=== PATIENT | female | born 1935 | race Caucasian/White ===

== ENCOUNTER 2021-01-30 13:49 | Inpatient (IN) | payer MEDICARE ==
[~2021-01-30] VITALS: Ht 160 cm; Wt 78.5 kg
--- NOTE | ~2021-01-30 | EMS ---
[address] [address] EMS Patient Care Report Name: ALYSHA BHAKTA Room: [place] [address] ADM IN [facility]#: [id number] Admission: 01/30/21 Attend Phys: Pat Kelley MD Discharge: Date of : 34 Report #: [id number] THIS REPORT FOR: //name// Report Transmitted: 01/30/2021 15:18 EMS Care Summary HANNAH CHAN Incident [id number] @ 01/30/2021 12:40 Incident Location [address] [place] [address] Patient Alysha A Sakina Female, 86 Years 1935 Patient Address [address] [place] [address] Patient Allergies No known allergies, Chief Complaint Cardiac related symptoms Disposition Transported No Lights/[place] Reason Unconscious/Fainting Transported To [facility] Narrative [facility] Laura responded without delay to a private residence for a female with decreased LOC. Arrived on scene without incident. Arrived to find the patient has a home health [employer] at her side. The [employer] reports that on her assessment she noted the patient to have a pulse rate in the 30's and a low blood pressure. [employer] reports that the patient has been having episodes of dizziness and fatigue. [employer] reports that the patient is normally healthy and denies the patient having any past medical history. [employer] denies the patient taking any medications. Arrived to find the patient is an 86 Y/O female sitting upright in a chair in her living room. The patient is alert and oriented, GCS is documented. The patient is [facility] [address] [place] [address] EMS Patient Care Report Name: ALYSHA BHAKTA Room: [place] [address] ADM IN [facility]#: [id number] Admission: 01/30/21 Attend Phys: Pat Kelley MD Discharge: Date of : 34 Report #: [id number] slightly anxious but cooperative with EMS staff. The patients airway is patent, breathing spontaneously with an adequate rate and depth. Circulation is present, skin condition is documented. The [employer] requested to see an EKG. EKG is obtained, the patient is noted to be in a junctional rhythm. The patient is bradycardic. The patient denies any dizziness at this time but reports that she has had some blurred vision. The patient denies any chest pain and denies shortness of breath but is noted to be hypotensive. The patient is assisted from her chair to stair chair without incident. The patient is then escorted to the EMS cot and secured to the cot with all safety restraints. The patient is then escorted to, lifted into and secured to the ambulance without incident. The patient remains on the full cardiac cath lab technologist. Vascular access is established, labs are collected and the patients blood glucose is obtained and documented without incident. IV fluids are administered and the patient is given .5mg of Atropine. The patient tolerated well and has noted improvement in her vital signs. The patients medical history is obtained and reviewed with the patient. The patient denies any past history, denies any allergies and denies taking any medications outside of OTC supplements at home. The patient denies any recent illness at home. The patient reports that her dizziness, blurred vision and general fatigue have been ongoing for about six months. The patient denies any other complaints at this time and continues to rest on the cot in no acute distress. Radio report called to [facility] without incident. arrived at the receiving facility without incident. The patient is removed from the ambulance and escorted inside without incident. The patient is transferred from EMS cot to ER cart without incident. RN at the bedside to obtain report and assume care of the patient. RN requested nothing further. The patient remains in stable condition. [facility] 310 cleared and returned to service. Initial Vitals @12:48Pain: 0/10, @13:19Pain: 0/10, @12:54SpO2: 96, @13:17SpO2: 97, @13:30SpO2: 98, @13:37SpO2: 98, @12:52 @13:21 @12:54P: 40,R: 17,BP: 81/62, @13:17P: 42,R: 17,BP: 132/75, @13:30P: 52,R: 17,BP: 171/87, @13:37P: 52,R: 19,BP: 178/96, @12:54GCS: 15, @13:17GCS: 15, @13:30GCS: 15, @13:37GCS: 15, @12:48 @13:28Glucose: 98, [place] [address] EMS Patient Care Report Name: ALYSHA BHAKTA Room: [address] IN [facility]#: [id number] Admission: 01/30/21 Attend Phys: Pat Kelley MD Discharge: Date of : 34 Report #: [id number] Assessments @12:48MENTAL:SKIN:HEENT:LUNG SOUNDS:ABDOMEN:PELVIS//GI:EXTREMITIES:PULSE:NEURO: Impression Cardiac arrhythmia/dysrhythmia Procedures @13:20Atropine - 0.500 Milligrams (mg) - Intravenous (IV)Response: Improved@13:18 cc () Site: Antecubital-LeftResponse: ImprovedSucceeded@12:5212-Lead ECGResponse: UnchangedSucceeded@13:2112-Lead ECGResponse: UnchangedSucceeded Timeline 12:38,Call Received 12:38,Dispatch Notified 12:38,Psap Call 12:40,Dispatched 12:41,En Route 12:47,On Scene 12:48,At Patient 12:48,BP: / M,PULSE: ,RR: R,SPO2: Ox,ETCO2: ,BG: ,PAIN: 0,GCS: , 12:48,BP: / M,PULSE: ,RR: R,SPO2: Ox,ETCO2: ,BG: ,PAIN: ,GCS: , 12:52,12-Lead ECG,Response: UnchangedSucceeded, 12:52,BP: / M,PULSE: ,RR: R,SPO2: Ox,ETCO2: ,BG: ,PAIN: ,GCS: , 12:54,BP: / M,PULSE: ,RR: R,SPO2: 96 Ox,ETCO2: ,BG: ,PAIN: ,GCS: , 12:54,BP: 81/62 M,PULSE: 40,RR: 17 R,SPO2: Ox,ETCO2: ,BG: ,PAIN: ,GCS: , 12:54,BP: / M,PULSE: ,RR: R,SPO2: Ox,ETCO2: ,BG: ,PAIN: ,GCS: 15, 13:17,BP: / M,PULSE: ,RR: R,SPO2: 97 Ox,ETCO2: ,BG: ,PAIN: ,GCS: , 13:17,BP: 132/75 M,PULSE: 42,RR: 17 R,SPO2: Ox,ETCO2: ,BG: ,PAIN: ,GCS: , 13:17,BP: / M,PULSE: ,RR: R,SPO2: Ox,ETCO2: ,BG: ,PAIN: ,GCS: 15, 13:18, cc Site: Antecubital-Left,Response: ImprovedSucceeded, 13:19,Depart Scene 13:19,BP: / M,PULSE: ,RR: R,SPO2: Ox,ETCO2: ,BG: ,PAIN: 0,GCS: , 13:20,Atropine - 0.500 Milligrams (mg) - Intravenous (IV),Response: Improved 13:21,12-Lead ECG,Response: UnchangedSucceeded, 13:21,BP: / M,PULSE: ,RR: R,SPO2: Ox,ETCO2: ,BG: ,PAIN: ,GCS: , 13:28,BP: / M,PULSE: ,RR: R,SPO2: Ox,ETCO2: ,B,PAIN: ,GCS: , 13:30,BP: / M,PULSE: ,RR: R,SPO2: 98 Ox,ETCO2: ,BG: ,PAIN: ,GCS: , 13:30,BP: 171/87 M,PULSE: 52,RR: 17 R,SPO2: Ox,ETCO2: ,BG: ,PAIN: ,GCS: , 13:30,BP: / M,PULSE: ,RR: R,SPO2: Ox,ETCO2: ,BG: ,PAIN: ,GCS: 15, 13:36,At Destination 13:37,BP: / M,PULSE: ,RR: R,SPO2: 98 Ox,ETCO2: ,BG: ,PAIN: ,GCS: , 13:37,BP: 178/96 M,PULSE: 52,RR: 19 R,SPO2: Ox,ETCO2: ,BG: ,PAIN: ,GCS: , 13:37,BP: / M,PULSE: ,RR: R,SPO2: Ox,ETCO2: ,BG: ,PAIN: ,GCS: 15, [facility] [address] [place] [address] EMS Patient Care Report Name: ALYSHA BHAKTA Room: [place] [address] ADM IN [facility]#: [id number] Admission: 01/30/21 Attend Phys: Pat Kelley MD Discharge: Date of : 34 Report #: [id number] 13:58,Call Closed Disclaimer v1.1 Copyright 2020 [employer] This EMS Care Summary contains data elements from the applicable legal record (which may be displayed differently). It is designed to provide pertinent information for the following purposes: continuity of care, clinical quality, and state data reporting. The complete legal record is available to ED staff and administrators of the receiving hospital in [facility]'s Patient Tracker. All data is provided "as is."
[2021-01-30 13:59] VITALS: BP 193/81
[2021-01-30 14:20] LABS: ABSOLUTE EOSINOPHILS 0.2 thou/uL (0.0-0.7); ABSOLUTE LYMPHOCYTES 2.8 thou/uL (0.8-5.3); ABSOLUTE MONOCYTES 0.7 thou/uL (0.0-1.2); ABSOLUTE NEUTROPHILS 4.1 thou/uL (1.6-8.1); BASOPHILS 0.4 %; EOSINOPHILS 2.7 %; HEMATOCRIT 42.6 % (37.0-47.0); HEMOGLOBIN 14.3 gm/dL (12.0-15.0); LYMPHOCYTES 35.8 %; MCH 32.5 pg (26.0-34.0); MCHC 33.7 g/dL (28.0-37.0); MCV 96.5 fL (80.0-100.0); MONOCYTES 8.7 %; MPV 8.6 fl. (7.2-11.1); NUCLEATED RBCS 0 /100WBC; PLATELET COUNT* 215 thou/uL (150-400); POLYS 52.4 %; RBC 4.42 mil/uL (4.20-5.00); WBC 7.9 thou/uL (4.0-11.0)
[2021-01-30 14:24] LABS: CALCIUM 9.2 mg/dL (8.5-10.1); CREATININE 1.1 mg/dL (0.6-1.3); POTASSIUM 4.4 mmol/L (3.5-5.1)
[2021-01-30 14:29] LABS: ALBUMIN 3.5 g/dL (3.4-5.0); TOTAL BILIRUBIN 0.7 mg/dL (<0.1-1.0); TOTAL PROTEIN 7.6 g/dL (6.4-8.2)
[2021-01-30 14:52] LABS: URINE BILIRUBIN NEGATIVE (Negative); URINE BLOOD NEGATIVE (Negative); URINE CLARITY CLEAR; URINE COLOR YELLOW; URINE GLUCOSE-RANDOM NEGATIVE (Negative); URINE KETONES NEGATIVE (Negative); URINE LEUKOCYTES 1+ (Negative); URINE NITRITE NEGATIVE (Negative); URINE PROTEIN NEGATIVE (Negative); URINE SPECIFIC GRAVITY 1.015 (1.005-1.030); URINE UROBILINOGEN 0.2 E.U./dl (0.2-1.0)
[2021-01-30 15:15] LABS: SQUAMOUS NONE SEEN /LPF (0-3)
[2021-01-30 15:16] LABS: BACTERIA None Seen /HPF (None Seen); CASTS None Seen /LPF (None Seen); CRYSTALS None Seen /LPF (None Seen); URINE RBC None Seen /HPF (0-2); URINE WBC 0-5 Rare /HPF (0-5)
--- NOTE | 2021-01-30 15:17 | EKG ---
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: : 1935 Requested By: Jose C Arreaga Order Number: [id number] MD: Miguel Deluca Measurements Intervals [place] Rate: 47 P: -82 NM: 113 QRS: -33 QRSD: 98 T: 49 QT: 479 QTc: 424 Interpretive Statements Ectopic atrial bradycardia Multiple ventricular premature complexes Borderline short NM interval Inferior infarct, old Consider anterior infarct No previous ECG available for comparison Electronically Signed On 01-30-2021 15:16:50 CDT by Miguel Deluca [email or web address] <ELECTRONICALLY SIGNED> By: Miguel Deluca MD, FACC 01/30/21 1516 1353 1353 Miguel Deluca MD, [facility] /EPI
[2021-01-30 21:11] VITALS: BP 172/61
[2021-01-30 22:26] VITALS: BP 170/62
[2021-01-31] VITALS (12 sets, daily range): BP systolic 127–153; BP diastolic 47–95
[2021-01-31 03:28] LABS: HEMOGLOBIN 13.1 gm/dL (12.0-15.0); MCH 32.6 pg (26.0-34.0); MCHC 34.4 g/dL (28.0-37.0); MPV 8.1 fl. (7.2-11.1); RDW-CV 12.5 % (10.5-14.5); WBC 7.1 thou/uL (4.0-11.0)
[2021-01-31 03:41] LABS: ANION GAP 10 mmol/L (7-16); BUN 22 mg/dL (7-18); CALCIUM 8.3 mg/dL (8.5-10.1); CHLORIDE 101 mmol/L (98-107); CHOLESTEROL 184 mg/dL (<200); CO2 25 mmol/L (21-32); GLUCOSE 80 mg/dL (70-99); HDL CHOLESTEROL 50 mg/dL (>40); LDL CHOLESTEROL 112 mg/dL (<100); SODIUM 136 mmol/L (136-145); TC:HDL 3.7 Ratio (Not establshd); TRIGLYCERIDE 112 mg/dL (<150); VLDL 22 mg/dL (<40)
[2021-01-31 03:42] LABS: SERUM ASSESSMENT CLEAR
--- NOTE | 2021-01-31 13:52 | NUR ---
CM COMPLETED THE ASSESSMENT WITH PT DTR TO GATHER MED HX. PT LIVES IN HOME ALONE. PT IS INDEPENDENT WITH ADLS. PT IS ACTIVE, AND COMPLETES HER OWN CHORES. PT HAS NO DMES. PT HAS NO HX WITH HH OR SNF. PT HAD PACEMAKER PLACED AND IS RECOVERING TODAY. THE POC IS FOR PT TO D/C LATER AFTERNOON, PER DTR AT BEDSIDE. RAKEL STATED DR. HOLLEY PLANS TO DC AT 15OO. NO CM D/C NEEDS. RAKEL STATED SHE PLANS TO STAY OVERNIGHT W/PT IN HER HOME.
--- NOTE | 2021-01-31 14:10 | 2DMMODE ---
[place] [address] 2 D/M-MODE ECHOCARDIOGRAM Name: ALYSHA BHAKTA Room: [address] IN [facility]#: [id number] Admission: 01/30/21 Attend Phys: Pat Kelley, Discharge: Date of : 34 Date of Service: 01/31/21 1410 Report #: [id number] THIS REPORT FOR: cc: Liam Montgomery MD, Bruce D. MD Blick,Miguel Green MD [facility] ~ APPROVED REPORT Study performed: 01/31/2021 13:22:49 EXAM: Comprehensive 2D, Doppler, and color-flow Echocardiogram Patient Location: In-Patient Room #: er Status: routine BSA: 1.72 HR: 66 bpm BP: 152/60 mmHg Rhythm: NSR Other Information Study Quality: Good Indications Abnormal ECG Pacemaker 2D Dimensions IVSd: 11.63 (7-11mm) LVOT Diam: 20.27 (18-24mm) LVDd: 39.93 mm PWd: 9.39 (7-11mm) Ascending Ao: 34.27 (22-36mm) LVDs: 23.26 (25-40mm) Aortic Root: 27.02 mm Volumes Left Atrial Volume (Systole) LA ESV Index: 27.70 mL/m2 Aortic Valve AoV Peak Tien.: 1.66 m/s AO Peak Gr.: 10.97 mmHg LVOT Max P.36 mmHg AO Mean Gr.: 5.41 mmHg LVOT Mean P.37 mmHg LVOT Max V: 1.36 m/s AO V2 VTI: 32.64 cm LVOT Mean V: 0.84 m/s GLORIA (VTI): 2.77 cm2 LVOT V1 VTI: 28.02 [place] [address] 2 D/M-MODE ECHOCARDIOGRAM Name: ALYSHA BHAKTA Room: [address] IN [facility]#: [id number] Admission: 01/30/21 Attend Phys: Pat Kelley, Discharge: Date of : 34 Date of Service: 01/31/21 1410 Report #: [id number] AI [place]: 1.60 m/s2 AI PHT: 821.51 ms Mitral Valve E/A Ratio: 0.58 MV Decel. Time: 234.13 ms MV E Max Tien.: 0.50 m/s MV PHT: 67.90 ms MVA (PHT): 3.24 cm2 TDI E/Lateral E': 8.33 E/Medial E': 7.14 Medial E' Tien.: 0.07 m/s Lateral E' Tien.: 0.06 m/s Pulmonary Valve PV Peak Tien.: 1.10 m/s PV Peak Gr.: 4.84 mmHg Tricuspid Valve RAP Estimate: 5.00 mmHg TR Peak Gr.: 22.49 mmHg RVSP: 27.00 mmHg PA Pressure: 27.00 mmHg Left Ventricle The left ventricle is normal size. There is normal LV segmental wall motion. There is normal left ventricular wall thickness. Left ventricular systolic function is normal. The left ventricular ejection fraction is within the normal range. LVEF is 60-65%. Grade I - abnormal relaxation pattern. Right Ventricle The right ventricle is normal size. The right ventricular systolic function is normal. Pacemaker lead is present in the right ventricle. Atria The left atrium size is normal. The right atrium size is normal. Aortic Valve Mild aortic valve sclerosis. Mild aortic regurgitation. There is no aortic valvular stenosis. Mitral Valve The mitral valve is normal in structure. Trace mitral regurgitation. No evidence of mitral [place] [address] 2 D/M-MODE ECHOCARDIOGRAM Name: ALYSHA BHAKTA Room: [address] IN [facility]#: [id number] Admission: 01/30/21 Attend Phys: Pat Kelley, Discharge: Date of : 34 Date of Service: 01/31/21 1410 Report #: [id number] Tricuspid Valve The tricuspid valve is normal in structure. Trace tricuspid regurgitation. No pulmonary hypertension. Pulmonic Valve The pulmonary valve is normal in structure. There is no pulmonic valvular regurgitation. Great Vessels The aortic root is normal in size. IVC is normal in size and collapses >50% with inspiration. Pericardium There is no pericardial effusion. <Conclusion> LVEF is 60-65%. Mild aortic valve sclerosis. Mild aortic regurgitation. Trace mitral regurgitation. <ELECTRONICALLY SIGNED> By: Miguel Deluca MD, [facility] 01/31/211409 09 09 Miguel Deluca MD, FACC /INF
--- NOTE | 2021-01-31 14:39 | EKG ---
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1935 Requested By: Miguel Deluca Order Number: [id number] Reading MD: Miguel Deluca Measurements Intervals [place] Rate: 56 P: MA: 193 QRS: -42 QRSD: 94 T: 58 QT: 501 QTc: 484 Interpretive Statements Atrial-paced rhythm Left axis deviation Minimal ST depression, lateral leads Compared to ECG 01/30/2021 13:53:40 Ventricular premature complex(es) no longer present atrial paced beats now noted Electronically Signed On 01-31-2021 14:38:34 CDT by Miguel Deluca [email or web address] <ELECTRONICALLY SIGNED> By: Miguel Deluca MD, FAC 01/31/21 1438 1324 1324 Miguel Deluca MD, [facility] /EPI
--- NOTE | 2021-01-31 14:39 | EKG ---
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1935 Requested By: Miguel Deluca Order Number: [id number] Alessia MD: Miguel Deluca Measurements Intervals [place] Rate: 84 P: -24 NC: 177 QRS: -78 QRSD: 125 T: 78 QT: 465 QTc: 550 Interpretive Statements Atrial-ventricular dual-paced rhythm No further analysis attempted due to paced rhythm Compared to ECG 01/31/2021 13:24:23 ventricular paced beats now noted Electronically Signed On 01-31-2021 14:39:38 CDT by Miguel Deluca [email or web address] <ELECTRONICALLY SIGNED> By: Miguel Deluca MD, FAC 01/31/21 1439 1326 1326 Miguel Deluca MD, FAC /EPI
--- NOTE | 2021-01-31 14:53 | CARD ---
[address] [address] CARDIAC CATH REPORT Name: ALYSHA BHAKTA Room: [address] IN [facility]#: [id number] Admission: 01/30/21 Attend Phys: Pat Kelley MD Discharge: Date of : 34 Report #: [id number] THIS REPORT FOR: cc: iLam Montgomery MD, Bruce D. MD Blick, David R. MD [facility] ~ ADDENDUM APPROVED REPORT Study performed: 01/31/2021 09:13:01 Patient Status: In-Patient Room #: Event Personnel: Miguel Deluca Health Insurance Specialist, Melchor Harvey Monitor, Vicky Kelly RTR Scrub, Rolo Lunsford RN RN Exam: Insertion of Dual Chamber Permanent Pacemaker Indications: Sick Sinus Syndrome/Tachy Ramiro Syndrome The patient is a 86 year-old female with a history of fatigue. Conscious Sedation Start time: 955 End Time: 1115 Implanted Devices: dual chamber MRI compatible medtronic pacemaker generator and leads Procedure The patient underwent informed consent. We discussed the details of the procedure including the risks, which include, but not limited to bleeding, infection, vascular damage, cardiac perforation, and pneumothorax. She understood these risks and was willing to proceed. As such, she was brought to the EP/Cardiac Catheterization laboratory in a fasting and sedated state and prepped and draped in a sterile fashion, received IV antibiotics prior to initiation of the procedure and a venogram was performed showing patency of the left axillary vein. The patient was brought to the EP/Cardiac Catheterization laboratory and the left chest and shoulder were prepped and draped in a sterile manner. During this case, Fluoroscopy and visipaque 10cc were used for imaging. The left subclavian region was infiltrated with 2% Lidocaine subcutaneous anesthesia. A transverse incision was made in the left upper chest cavity. The subcutaneous pocket was [place] [address] CARDIAC CATH REPORT Name: ALYSHA BHAKTA Room: [address] IN [facility]#: [id number] Admission: 01/30/21 Attend Phys: Pat Kelley MD Discharge: Date of : 34 Report #: [id number] venous access was achieved and an introducer sheath was inserted into the left Subclavian vein. Sheaths were positions using the modified Seldinger technique Through the introducer sheaths the atrial and ventricular lead wires were positioned in the right atrial appendage and right ventricular apex respectively. Utilizing fluoroscopic guidance, the atrial and ventricular lead wires were advanced over the wires and positioned in the right atria and right ventricle respectively. Capturing and sensing thresholds were verified. Electrode Parameters P Wave: 3.0 mv R Wave: 5.1 mv Atrial Threshold: 0.8 v @0.5 ms Ventricular Threshold: 0.8 v @ 0.5 ms Atrial Resistance: 597 ohm Ventricular Resistance: 723 ohm Dual Chamber The atrial and ventricular leads were then secured using 0 silk sutures. The subcutaneous pocket was irrigated with ancef antibiotic solution.The atrial and ventricular leads were attached to the appropriate receptacles on the pulse generator and set screws firmly tightened to insure adequate contact and stability. The lead and pulse generator were placed into the subcutaneous pocket. Sharp and sponge counts were confirmed to be correct. At this time the pocket was closed subcutaneously with a 0 Vicryl and the skin was closed with a 4.0 Vicryl. The operative site was dressed in sterile fashion with skin affix and the patient was transferred to the floor in stable condition. Complications The patient tolerated the procedure well and there were no complications associated with the procedure. Findings Specimens Removed: No Estimated Blood Loss: less than 5cc Conclusion Successful placement of a dual chamber pacemaker and leads <ELECTRONICALLY SIGNED> By: Miguel Deluca MD, [facility] 01/31/21 1453 1453 [id number] Deluca MD, [facility] /INF
--- NOTE | 2021-01-31 14:56 | CON ---
[facility] [address] [place] [address] CONSULTATION Name: SHIRT SEWERALYSHA COHEN Urszula Room: [place] [address] ADM IN [facility].#: [id number] Admission: 01/30/21 Attend Phys: Pat Kelley MD Discharge: Date of : 34 Report #: [id number] THIS REPORT FOR: cc: Liam Montgomery MD, Bruce D. MD Blick, David R. MD [facility] ~ DATE OF CONSULTATION: 01/30/2021 HISTORY OF PRESENT ILLNESS: The patient is an 86-year-old single white female who I was asked to see in the Emergency Room today after she was noted to be bradycardic. The patient has no previous history of heart disease. She stays very active, living by herself. She does have occasional lightheaded spells. She has noticed some decrease in energy recently. She notes occasional skipped heartbeat. She has had no previous cardiac evaluation. She denies ever being told she had a slow heart rate. The insurance company said the nurse come by the home once a year for checkup. When the nurse went to the home today, she was noted to be bradycardic with a heart rate of 31. She was sent to the Emergency Room for further evaluation and treatment. She denies a history of chest pressure, shortness of breath, lower extremity edema, syncope, vomiting, diarrhea. PAST MEDICAL HISTORY: She has had appendectomy, tonsillectomy, foot surgery. No history of hypertension, diabetes, hyperlipidemia. She is hard of hearing, wears hearing aids. CURRENT MEDICATIONS: She is on no medication. ALLERGIES: She has no known drug allergies. FAMILY HISTORY: Father had a pacemaker. SOCIAL HISTORY: She is single and lives by herself in independence. No smoking, alcohol abuse. REVIEW OF SYSTEMS: No history of stroke, asthma, liver disease, kidney disease, cancer, psychiatric illness, chronic skin condition. PHYSICAL EXAMINATION: GENERAL: Revealed an elderly female who appeared in no distress. VITAL SIGNS: Blood pressure 140/80, pulse is 40. She is afebrile. HEENT: She was anicteric. Conjunctivae pink. Mucosa moist. NECK: Veins not distended. No carotid bruits. Neck is supple. CHEST: Clear to auscultation. HEART: Regular bradycardia. No significant murmur. ABDOMEN: [place] [address] CONSULTATION Name: ALYSHA BHAKTA Room: [address]#: [id number] Admission: 01/30/21 Attend Phys: Pat Kelley MD Discharge: Date of : 34 Report #: [id number] EXTREMITIES: Had no edema. Dorsalis pedis pulse 1+ bilaterally. SKIN: Cool and dry. NEUROLOGIC: Nonfocal. LYMPHATIC: No adenopathy. MUSCULOSKELETAL: Joint effusion. IMAGING: Her ECG on admission showed what appeared to represent an ectopic atrial bradycardia with a short ID interval. PVCs and poor R-wave progression. Her workup in the Emergency Room, she had a portable chest x-ray which showed normal heart size and clear lung hale. LABORATORY DATA: Potassium 4.4, creatinine 1.1. High sensitive troponin 18. Hemoglobin 14.3. COVID antigen stat test was negative. Urinalysis was negative for blood or protein. There was rare WBCs. IMPRESSION AND RECOMMENDATIONS: Sick sinus syndrome. Check thyroid function studies and echocardiogram. If symptomatic, I would recommend a pacemaker. <ELECTRONICALLY SIGNED> By: Miguel Deluca MD, FACC 01/31/21 1456 1520 1844Ddeacon Deluca MD, FACC /nt
== END 2021-01-31 15:00 | disposition home or self-care (01) | DRG 243 ==
LOC: M.ERS 13:49 → M.TBA-ER 15:35
PROVIDERS: Emergency Medicine; Internal Medicine Cardiovascular Disease; ADMIT Internal Medicine; ATTEND Internal Medicine
PROC: 02HK3JZ Insertion of Pacemaker Lead into Right Ventricle, Percutaneous Approach (ICD-10-PCS; principal; 2021-01-31)
PROC: 02H63JZ Insertion of Pacemaker Lead into Right Atrium, Percutaneous Approach (ICD-10-PCS; principal; 2021-01-31)
PROC: 0JH606Z Insertion of Pacemaker, Dual Chamber into Chest Subcutaneous Tissue and Fascia, Open Approach (ICD-10-PCS; principal; 2021-01-31)
PROC: B51N1ZZ Fluoroscopy of Left Upper Extremity Veins using Low Osmolar Contrast (ICD-10-PCS; principal; 2021-01-31)
DX: I49.5 Sick sinus syndrome (principal); I50.32 Chronic diastolic (congestive) heart failure; Z20.822 Contact with and (suspected) exposure to COVID-19; Z90.49 Acquired absence of other specified parts of digestive tract; Z82.49 Family history of ischemic heart disease and other diseases of the circulatory system; Z79.899 Other long term (current) drug therapy